=== PATIENT | male | born 1955 | race Caucasian/White ===

== ENCOUNTER 2017-11-09 18:22 | Emergency (ER) | payer OTHER, SELFPAY ==
[~2017-11-09] VITALS: Ht 185.4 cm; Wt 98.0 kg
[~2017-11-09 18:22] MED LIST: AMOCLA500 PO; BUME1 PO; BUSPAR; CARI350 PO; CEPH500 PO; CLIN150 PO; CLIN300 PO; FURO20 PO; FURO40 PO; HYDCHL12.5 PO; IBUP800 PO; LACT10SY PO; LISI5 PO; METF500 PO; METH10 PO; METH5 PO; OXYC30 PO; OXYC30ER PO; OXYC5 PO; POTA10T PO; POTA8 PO; RXCLIN PO; SOMA350 MG PO; SPIR50 PO; SULTRIDS PO; VANCO-0.9%1.75 GM/50 IV; VANCOMYCIN2 GM/250 M IV; [UNRECOGNIZED DRUG - REMARK]
[2017-11-09 20:00] LABS: BASOPHILS ABSOLUTE AUTO 0.01 K/mm3 (0.00-0.23); BASOPHILS PERCENT AUTO 0 % (0-2); EOSINOPHILS ABSOLUTE AUTO 0.13 K/mm3 (0.00-0.68); EOSINOPHILS PERCENT AUTO 3 % (0-6); Hematocrit 40.9 % (37.0-53.0); Hemoglobin 13.5 g/dL (13.5-17.5); IMMATURE GRAN ABSOLUTE AUTO 0.01 K/mm3 (0.00-0.10); IMMATURE GRAN PERCENT AUTO 0 % (0-1); LYMPHOCYTES ABSOLUTE AUTO 0.75 K/mm3 (0.84-5.20); LYMPHOCYTES PERCENT AUTO 18 % (21-46); MONOCYTES ABSOLUTE AUTO 0.58 K/mm3 (0.16-1.47); MONOCYTES PERCENT AUTO 14 % (4-13); Mean Corpuscular HGB 29.2 pg (26.0-34.0); Mean Corpuscular Volume 88 fL (80-100); Mean Platelet Volume 11.2 fL (9.1-12.4); NEUTROPHILS ABSOLUTE AUTO 2.79 K/mm3 (1.96-9.15); NEUTROPHILS PERCENT AUTO 65 % (41-73); Platelet Count 73 K/mm3 (150-400); RDW Standard Deviation 45.4 fL (35.1-46.3); Red Blood Cell Count 4.63 M/mm3 (4.30-5.90); White Blood Cell Count 4.27 K/mm3 (4.00-11.30)
[2017-11-09] MEDS ORDERED: Cleocin HCl300 MG PO (20:12)
[2017-11-09 20:17] LABS: Alanine Aminotransfer (ALT/SGP 36 U/L (12-78); Albumin, Blood 3.4 g/dL (3.4-5.0); Albumin/Globulin Ratio 0.6 (0.8-1.8); Alk Phos 145 U/L (50-136); Anion Gap 4 mmol/L (6-16); Aspartate Aminotrans (AST/SGOT 33 U/L (12-37); Bilirubin, Total 0.8 mg/dL (0.1-1.0); Blood Urea Nitrogen 15 mg/dL (8-24); Bun/Creatinine Ratio 19.4 (12.0-20.0); CO2, Blood 32 mmol/L (21-32); Calcium, Blood 9.1 mg/dL (8.5-10.1); Chloride, Blood 99 mmol/L (98-108); Creatinine, Blood 0.77 mg/dL (0.60-1.20); Globulin, Blood 5.7 g/dL (2.2-4.0); Glomerular Filtration Rate >60 (60-); Glucose, Blood 103 mg/dL (70-99); Potassium, Blood 4.3 mmol/L (3.5-5.5); Sodium, Blood 135 mmol/L (136-145); Total Protein, Blood 9.1 g/dL (6.4-8.2)
[2018-02-13] MEDS ORDERED: Prinivil10 MG (08:41)
[2018-02-13] MEDS ORDERED: ESZO2 (08:41)
[2018-10-25] MEDS ORDERED: Keflex500 MG PO (03:12)
== END 2017-11-09 20:53 | disposition home or self-care (01) ==
LOC: ER 18:22
PROVIDERS: Physician Assistant
DX: L03.031 Cellulitis of right toe (principal); E11.9 Type 2 diabetes mellitus without complications; K72.90 Hepatic failure, unspecified without coma; Z88.5 Allergy status to narcotic agent; Z79.899 Other long term (current) drug therapy; Z79.84 Long term (current) use of oral hypoglycemic drugs; Z86.19 Personal history of other infectious and parasitic diseases; Z86.14 Personal history of Methicillin resistant Staphylococcus aureus infection; Z90.49 Acquired absence of other specified parts of digestive tract; Z87.891 Personal history of nicotine dependence
CPT/HCPCS: 36415; 80053; 85025; 96365; 99283

== ENCOUNTER 2017-11-11 08:06 | Day surgery (SDC) | payer OTHER, SELFPAY ==
[~2017-11-11 08:06] MED LIST changes: +Cleocin HCl300 MG PO
[2017-11-11] MEDS ORDERED: METH10 PO (09:22)
[2017-11-11] MEDS ORDERED: OXYC30ER PO (09:23)
[2017-11-11] MEDS ORDERED: POTCHL10ER PO (09:24)
[2018-02-13] MEDS ORDERED: ESZO2 (08:41)
[2018-02-13] MEDS ORDERED: Prinivil10 MG (08:41)
[2018-10-25] MEDS ORDERED: Keflex500 MG PO (03:12)
== END 2017-11-11 16:39 | disposition home or self-care (01) ==
LOC: ATC 08:06
DX: L03.031 Cellulitis of right toe (principal); E11.9 Type 2 diabetes mellitus without complications; Z79.899 Other long term (current) drug therapy; Z79.84 Long term (current) use of oral hypoglycemic drugs; Z88.5 Allergy status to narcotic agent; Z87.891 Personal history of nicotine dependence; Z86.14 Personal history of Methicillin resistant Staphylococcus aureus infection
CPT/HCPCS: 96365

== ENCOUNTER 2017-11-12 10:14 | Emergency (ER) | payer OTHER, SELFPAY ==
[~2017-11-12] VITALS: Ht 185.4 cm; Wt 98.9 kg
[~2017-11-12 10:14] MED LIST changes: +POTCHL10ER PO
[2018-02-13] MEDS ORDERED: Prinivil10 MG (08:41)
[2018-02-13] MEDS ORDERED: ESZO2 (08:41)
[2018-10-25] MEDS ORDERED: Keflex500 MG PO (03:12)
== END 2017-11-12 11:40 | disposition home or self-care (01) ==
LOC: ER 10:14
DX: L03.032 Cellulitis of left toe (principal); E11.9 Type 2 diabetes mellitus without complications; K72.90 Hepatic failure, unspecified without coma; Z88.5 Allergy status to narcotic agent; Z79.899 Other long term (current) drug therapy; Z79.84 Long term (current) use of oral hypoglycemic drugs; Z86.19 Personal history of other infectious and parasitic diseases; Z86.14 Personal history of Methicillin resistant Staphylococcus aureus infection; Z90.49 Acquired absence of other specified parts of digestive tract; Z87.891 Personal history of nicotine dependence
CPT/HCPCS: 96372; 99282; J3490

== ENCOUNTER 2017-11-15 12:55 | Day surgery (SDC) | payer OTHER, SELFPAY ==
[2018-02-13] MEDS ORDERED: Prinivil10 MG (08:41)
[2018-02-13] MEDS ORDERED: ESZO2 (08:41)
[2018-10-25] MEDS ORDERED: Keflex500 MG PO (03:12)
== END 2017-11-15 23:18 | disposition home or self-care (01) ==
LOC: WOUND 12:55
PROC: 0HBNXZZ Excision of Left Foot Skin, External Approach (ICD-10-PCS; principal; 2017-11-15)
DX: Z48.00 Encounter for change or removal of nonsurgical wound dressing (principal); E11.22 Type 2 diabetes mellitus with diabetic chronic kidney disease; E11.621 Type 2 diabetes mellitus with foot ulcer; I87.2 Venous insufficiency (chronic) (peripheral); I73.9 Peripheral vascular disease, unspecified; L97.529 Non-pressure chronic ulcer of other part of left foot with unspecified severity
CPT/HCPCS: G0463

== ENCOUNTER 2017-11-20 00:35 | Day surgery (SDC) | payer OTHER ==
[2018-02-13] MEDS ORDERED: ESZO2 (08:41)
[2018-02-13] MEDS ORDERED: Prinivil10 MG (08:41)
[2018-10-25] MEDS ORDERED: Keflex500 MG PO (03:12)
== END 2017-11-20 22:46 | disposition home or self-care (01) ==
LOC: WOUND 00:35
DX: Z48.00 Encounter for change or removal of nonsurgical wound dressing (principal); I87.2 Venous insufficiency (chronic) (peripheral); I73.9 Peripheral vascular disease, unspecified; E11.621 Type 2 diabetes mellitus with foot ulcer; E11.21 Type 2 diabetes mellitus with diabetic nephropathy; L97.529 Non-pressure chronic ulcer of other part of left foot with unspecified severity; Z79.84 Long term (current) use of oral hypoglycemic drugs
CPT/HCPCS: G0463

== ENCOUNTER 2017-11-27 10:40 | Day surgery (SDC) | payer OTHER ==
[2018-02-13] MEDS ORDERED: ESZO2 (08:41)
[2018-02-13] MEDS ORDERED: Prinivil10 MG (08:41)
[2018-10-25] MEDS ORDERED: Keflex500 MG PO (03:12)
== END 2017-11-27 11:39 | disposition home or self-care (01) ==
LOC: WOUND 10:40
DX: Z48.00 Encounter for change or removal of nonsurgical wound dressing (principal); I73.9 Peripheral vascular disease, unspecified; E11.621 Type 2 diabetes mellitus with foot ulcer; E11.21 Type 2 diabetes mellitus with diabetic nephropathy; Z79.84 Long term (current) use of oral hypoglycemic drugs; L97.529 Non-pressure chronic ulcer of other part of left foot with unspecified severity
CPT/HCPCS: G0463

== ENCOUNTER 2017-12-04 10:40 | Day surgery (SDC) | payer OTHER ==
[2018-02-13] MEDS ORDERED: ESZO2 (08:41)
[2018-02-13] MEDS ORDERED: Prinivil10 MG (08:41)
[2018-10-25] MEDS ORDERED: Keflex500 MG PO (03:12)
== END 2017-12-04 12:55 | disposition home or self-care (01) ==
LOC: WOUND 10:40
DX: Z48.00 Encounter for change or removal of nonsurgical wound dressing (principal); E11.621 Type 2 diabetes mellitus with foot ulcer; E11.21 Type 2 diabetes mellitus with diabetic nephropathy; I87.2 Venous insufficiency (chronic) (peripheral); L97.529 Non-pressure chronic ulcer of other part of left foot with unspecified severity
CPT/HCPCS: G0463

== ENCOUNTER 2017-12-11 09:55 | Day surgery (SDC) | payer OTHER, SELFPAY ==
[2018-02-13] MEDS ORDERED: Prinivil10 MG (08:41)
[2018-02-13] MEDS ORDERED: ESZO2 (08:41)
[2018-10-25] MEDS ORDERED: Keflex500 MG PO (03:12)
== END 2017-12-11 23:25 | disposition home or self-care (01) ==
LOC: WOUND 09:55
PROC: 0HBNXZZ Excision of Left Foot Skin, External Approach (ICD-10-PCS; principal; 2017-12-11)
DX: Z48.00 Encounter for change or removal of nonsurgical wound dressing (principal); E11.621 Type 2 diabetes mellitus with foot ulcer; L97.529 Non-pressure chronic ulcer of other part of left foot with unspecified severity; E11.21 Type 2 diabetes mellitus with diabetic nephropathy; I87.2 Venous insufficiency (chronic) (peripheral); I73.9 Peripheral vascular disease, unspecified
CPT/HCPCS: G0463

== ENCOUNTER 2017-12-17 00:22 | Day surgery (SDC) | payer OTHER ==
[2018-02-13] MEDS ORDERED: Prinivil10 MG (08:41)
[2018-02-13] MEDS ORDERED: ESZO2 (08:41)
[2018-10-25] MEDS ORDERED: Keflex500 MG PO (03:12)
== END 2017-12-17 22:57 | disposition home or self-care (01) ==
LOC: WOUND 00:22
DX: Z48.00 Encounter for change or removal of nonsurgical wound dressing (principal); I87.2 Venous insufficiency (chronic) (peripheral); I73.9 Peripheral vascular disease, unspecified; E11.621 Type 2 diabetes mellitus with foot ulcer; E11.21 Type 2 diabetes mellitus with diabetic nephropathy; Z79.84 Long term (current) use of oral hypoglycemic drugs; L97.529 Non-pressure chronic ulcer of other part of left foot with unspecified severity
CPT/HCPCS: G0463

== ENCOUNTER 2017-12-24 00:21 | Day surgery (SDC) | payer OTHER ==
[2018-02-13] MEDS ORDERED: Prinivil10 MG (08:41)
[2018-02-13] MEDS ORDERED: ESZO2 (08:41)
[2018-10-25] MEDS ORDERED: Keflex500 MG PO (03:12)
== END 2017-12-24 14:33 | disposition home or self-care (01) ==
LOC: WOUND 00:21
DX: Z48.00 Encounter for change or removal of nonsurgical wound dressing (principal); I87.2 Venous insufficiency (chronic) (peripheral); I73.9 Peripheral vascular disease, unspecified; E11.621 Type 2 diabetes mellitus with foot ulcer; E11.21 Type 2 diabetes mellitus with diabetic nephropathy; L97.529 Non-pressure chronic ulcer of other part of left foot with unspecified severity
CPT/HCPCS: G0463

== ENCOUNTER 2018-01-01 00:28 | Day surgery (SDC) | payer OTHER ==
[2018-02-13] MEDS ORDERED: Prinivil10 MG (08:41)
[2018-02-13] MEDS ORDERED: ESZO2 (08:41)
[2018-10-25] MEDS ORDERED: Keflex500 MG PO (03:12)
== END 2018-01-01 22:45 | disposition home or self-care (01) ==
LOC: WOUND 00:28
DX: Z48.00 Encounter for change or removal of nonsurgical wound dressing (principal); I87.2 Venous insufficiency (chronic) (peripheral); I73.9 Peripheral vascular disease, unspecified; E11.621 Type 2 diabetes mellitus with foot ulcer; E11.21 Type 2 diabetes mellitus with diabetic nephropathy; L97.529 Non-pressure chronic ulcer of other part of left foot with unspecified severity; Z86.19 Personal history of other infectious and parasitic diseases
CPT/HCPCS: G0463

== ENCOUNTER 2018-01-06 10:17 | Emergency (ER) | payer OTHER, SELFPAY ==
[~2018-01-06] VITALS: Ht 185.4 cm; Wt 98.0 kg
[2018-01-06] MEDS ORDERED: CEPH500 PO (11:51)
[2018-02-13] MEDS ORDERED: ESZO2 (08:41)
[2018-02-13] MEDS ORDERED: Prinivil10 MG (08:41)
[2018-10-25] MEDS ORDERED: Keflex500 MG PO (03:12)
== END 2018-01-06 11:58 | disposition home or self-care (01) ==
LOC: ER 10:17
DX: L03.116 Cellulitis of left lower limb (principal); L03.115 Cellulitis of right lower limb; Z88.5 Allergy status to narcotic agent; Z88.6 Allergy status to analgesic agent; Z79.899 Other long term (current) drug therapy; Z79.84 Long term (current) use of oral hypoglycemic drugs; Z79.2 Long term (current) use of antibiotics; E11.9 Type 2 diabetes mellitus without complications; Z87.891 Personal history of nicotine dependence
CPT/HCPCS: 99282

== ENCOUNTER 2018-01-08 09:43 | Day surgery (SDC) | payer OTHER ==
[2018-02-13] MEDS ORDERED: ESZO2 (08:41)
[2018-02-13] MEDS ORDERED: Prinivil10 MG (08:41)
[2018-10-25] MEDS ORDERED: Keflex500 MG PO (03:12)
== END 2018-01-08 11:47 | disposition home or self-care (01) ==
LOC: WOUND 09:43
DX: Z48.00 Encounter for change or removal of nonsurgical wound dressing (principal); E11.621 Type 2 diabetes mellitus with foot ulcer; L97.529 Non-pressure chronic ulcer of other part of left foot with unspecified severity; Z79.84 Long term (current) use of oral hypoglycemic drugs; Z86.19 Personal history of other infectious and parasitic diseases; I87.2 Venous insufficiency (chronic) (peripheral); I73.9 Peripheral vascular disease, unspecified; E11.21 Type 2 diabetes mellitus with diabetic nephropathy
CPT/HCPCS: G0463

== ENCOUNTER 2018-01-10 01:15 | Day surgery (SDC) | payer OTHER, SELFPAY ==
[2018-01-10] MEDS ORDERED: GABA300 (11:53)
[2018-02-13] MEDS ORDERED: ESZO2 (08:41)
[2018-02-13] MEDS ORDERED: Prinivil10 MG (08:41)
[2018-10-25] MEDS ORDERED: Keflex500 MG PO (03:12)
== END 2018-01-10 10:55 | disposition home or self-care (01) ==
LOC: ATC 01:15
PROC: 02H633Z Insertion of Infusion Device into Right Atrium, Percutaneous Approach (ICD-10-PCS; principal; 2018-01-10)
DX: L03.031 Cellulitis of right toe (principal); E11.40 Type 2 diabetes mellitus with diabetic neuropathy, unspecified; Z87.891 Personal history of nicotine dependence
CPT/HCPCS: 36569; 96374; C1751; J0696

== ENCOUNTER 2018-01-11 00:18 | Day surgery (SDC) | payer OTHER, SELFPAY ==
[~2018-01-11 00:18] MED LIST changes: +GABA300
[2018-02-13] MEDS ORDERED: ESZO2 (08:41)
[2018-02-13] MEDS ORDERED: Prinivil10 MG (08:41)
[2018-10-25] MEDS ORDERED: Keflex500 MG PO (03:12)
== END 2018-01-11 15:23 | disposition home or self-care (01) ==
LOC: ATC 00:18
DX: L03.031 Cellulitis of right toe (principal); E11.40 Type 2 diabetes mellitus with diabetic neuropathy, unspecified; Z88.5 Allergy status to narcotic agent; Z79.899 Other long term (current) drug therapy; Z79.84 Long term (current) use of oral hypoglycemic drugs; Z86.14 Personal history of Methicillin resistant Staphylococcus aureus infection; Z87.891 Personal history of nicotine dependence
CPT/HCPCS: 96374; J0696

== ENCOUNTER 2018-01-12 00:20 | Day surgery (SDC) | payer OTHER, SELFPAY ==
[2018-02-13] MEDS ORDERED: ESZO2 (08:41)
[2018-02-13] MEDS ORDERED: Prinivil10 MG (08:41)
[2018-10-25] MEDS ORDERED: Keflex500 MG PO (03:12)
== END 2018-01-12 11:20 | disposition home or self-care (01) ==
LOC: ATC 00:20
DX: L03.031 Cellulitis of right toe (principal); E11.40 Type 2 diabetes mellitus with diabetic neuropathy, unspecified; Z86.14 Personal history of Methicillin resistant Staphylococcus aureus infection; Z87.891 Personal history of nicotine dependence
CPT/HCPCS: 96374; J0696

== ENCOUNTER 2018-01-13 07:15 | Day surgery (SDC) | payer OTHER, SELFPAY ==
[2018-01-13 11:30] LABS: International Normalized Ratio 1.18; Prothrombin Time Results 12.3 Sec (9.7-11.5)
[2018-02-13] MEDS ORDERED: ESZO2 (08:41)
[2018-02-13] MEDS ORDERED: Prinivil10 MG (08:41)
[2018-10-25] MEDS ORDERED: Keflex500 MG PO (03:12)
== END 2018-01-13 10:59 | disposition home or self-care (01) ==
LOC: ATC 07:15
PROVIDERS: Family Medicine
DX: L03.031 Cellulitis of right toe (principal); E11.40 Type 2 diabetes mellitus with diabetic neuropathy, unspecified; Z86.14 Personal history of Methicillin resistant Staphylococcus aureus infection; Z87.891 Personal history of nicotine dependence
CPT/HCPCS: 82105; 85610; 86708; 87340; 87389; 96374; J0696

== ENCOUNTER 2018-01-14 00:48 | Day surgery (SDC) | payer OTHER, SELFPAY ==
[2018-02-13] MEDS ORDERED: ESZO2 (08:41)
[2018-02-13] MEDS ORDERED: Prinivil10 MG (08:41)
[2018-10-25] MEDS ORDERED: Keflex500 MG PO (03:12)
== END 2018-01-14 11:12 | disposition home or self-care (01) ==
LOC: ATC 00:48
DX: L03.031 Cellulitis of right toe (principal); E11.40 Type 2 diabetes mellitus with diabetic neuropathy, unspecified; Z86.19 Personal history of other infectious and parasitic diseases; Z86.14 Personal history of Methicillin resistant Staphylococcus aureus infection; Z87.891 Personal history of nicotine dependence
CPT/HCPCS: 82140; 96374; J0696

== ENCOUNTER 2018-01-15 03:37 | Day surgery (SDC) | payer OTHER, SELFPAY ==
[2018-02-13] MEDS ORDERED: Prinivil10 MG (08:41)
[2018-02-13] MEDS ORDERED: ESZO2 (08:41)
[2018-10-25] MEDS ORDERED: Keflex500 MG PO (03:12)
== END 2018-01-15 10:54 | disposition home or self-care (01) ==
LOC: ATC 03:37
DX: L03.031 Cellulitis of right toe (principal); E11.40 Type 2 diabetes mellitus with diabetic neuropathy, unspecified; Z86.19 Personal history of other infectious and parasitic diseases; Z87.891 Personal history of nicotine dependence
CPT/HCPCS: 96374; J0696

== ENCOUNTER 2018-01-15 09:43 | Day surgery (SDC) | payer OTHER ==
[2018-02-13] MEDS ORDERED: Prinivil10 MG (08:41)
[2018-02-13] MEDS ORDERED: ESZO2 (08:41)
[2018-10-25] MEDS ORDERED: Keflex500 MG PO (03:12)
== END 2018-01-15 23:24 | disposition home or self-care (01) ==
LOC: WOUND 09:43
DX: Z48.00 Encounter for change or removal of nonsurgical wound dressing (principal); E11.51 Type 2 diabetes mellitus with diabetic peripheral angiopathy without gangrene; I87.2 Venous insufficiency (chronic) (peripheral); I73.9 Peripheral vascular disease, unspecified; E11.621 Type 2 diabetes mellitus with foot ulcer; E11.21 Type 2 diabetes mellitus with diabetic nephropathy
CPT/HCPCS: G0463

== ENCOUNTER 2018-01-16 00:18 | Day surgery (SDC) | payer OTHER, SELFPAY ==
[2018-02-13] MEDS ORDERED: Prinivil10 MG (08:41)
[2018-02-13] MEDS ORDERED: ESZO2 (08:41)
[2018-10-25] MEDS ORDERED: Keflex500 MG PO (03:12)
== END 2018-01-16 09:55 | disposition home or self-care (01) ==
LOC: ATC 00:18
DX: L03.031 Cellulitis of right toe (principal); E11.40 Type 2 diabetes mellitus with diabetic neuropathy, unspecified; Z86.14 Personal history of Methicillin resistant Staphylococcus aureus infection
CPT/HCPCS: 96374; J0696

== ENCOUNTER 2018-01-17 00:36 | Day surgery (SDC) | payer OTHER, SELFPAY ==
[2018-02-13] MEDS ORDERED: ESZO2 (08:41)
[2018-02-13] MEDS ORDERED: Prinivil10 MG (08:41)
[2018-10-25] MEDS ORDERED: Keflex500 MG PO (03:12)
== END 2018-01-17 10:15 | disposition home or self-care (01) ==
LOC: ATC 00:36
DX: L03.031 Cellulitis of right toe (principal); E11.9 Type 2 diabetes mellitus without complications; Z86.14 Personal history of Methicillin resistant Staphylococcus aureus infection; Z87.891 Personal history of nicotine dependence
CPT/HCPCS: 96365; J0696

== ENCOUNTER 2018-01-22 09:45 | Day surgery (SDC) | payer OTHER ==
[2018-02-13] MEDS ORDERED: Prinivil10 MG (08:41)
[2018-02-13] MEDS ORDERED: ESZO2 (08:41)
[2018-10-25] MEDS ORDERED: Keflex500 MG PO (03:12)
== END 2018-01-22 10:36 | disposition home or self-care (01) ==
LOC: WOUND 09:45
DX: Z48.00 Encounter for change or removal of nonsurgical wound dressing (principal); E11.621 Type 2 diabetes mellitus with foot ulcer; L97.529 Non-pressure chronic ulcer of other part of left foot with unspecified severity; I87.2 Venous insufficiency (chronic) (peripheral); I73.9 Peripheral vascular disease, unspecified; E11.21 Type 2 diabetes mellitus with diabetic nephropathy
CPT/HCPCS: G0463

== ENCOUNTER 2018-01-24 00:51 | Day surgery (SDC) | payer OTHER ==
[2018-02-13] MEDS ORDERED: Prinivil10 MG (08:41)
[2018-02-13] MEDS ORDERED: ESZO2 (08:41)
[2018-10-25] MEDS ORDERED: Keflex500 MG PO (03:12)
== END 2018-01-24 11:50 | disposition home or self-care (01) ==
LOC: ATC 00:51
DX: E11.621 Type 2 diabetes mellitus with foot ulcer (principal); L97.519 Non-pressure chronic ulcer of other part of right foot with unspecified severity; I87.2 Venous insufficiency (chronic) (peripheral); I73.9 Peripheral vascular disease, unspecified; E11.21 Type 2 diabetes mellitus with diabetic nephropathy; Z79.84 Long term (current) use of oral hypoglycemic drugs
CPT/HCPCS: 99211

== ENCOUNTER 2018-01-31 01:04 | Day surgery (SDC) | payer OTHER ==
[2018-02-13] MEDS ORDERED: Prinivil10 MG (08:41)
[2018-02-13] MEDS ORDERED: ESZO2 (08:41)
[2018-10-25] MEDS ORDERED: Keflex500 MG PO (03:12)
== END 2018-01-31 11:30 | disposition home or self-care (01) ==
LOC: ATC 01:04
DX: Z45.2 Encounter for adjustment and management of vascular access device (principal); E11.621 Type 2 diabetes mellitus with foot ulcer; L97.429 Non-pressure chronic ulcer of left heel and midfoot with unspecified severity; I87.2 Venous insufficiency (chronic) (peripheral); I73.9 Peripheral vascular disease, unspecified; E11.21 Type 2 diabetes mellitus with diabetic nephropathy; Z86.19 Personal history of other infectious and parasitic diseases
CPT/HCPCS: 99211

== ENCOUNTER 2018-01-31 10:15 | Day surgery (SDC) | payer OTHER ==
[2018-02-13] MEDS ORDERED: Prinivil10 MG (08:41)
[2018-02-13] MEDS ORDERED: ESZO2 (08:41)
[2018-10-25] MEDS ORDERED: Keflex500 MG PO (03:12)
== END 2018-01-31 11:29 | disposition home or self-care (01) ==
LOC: WOUND 10:15
DX: E11.621 Type 2 diabetes mellitus with foot ulcer (principal); I87.2 Venous insufficiency (chronic) (peripheral); I73.9 Peripheral vascular disease, unspecified; E11.21 Type 2 diabetes mellitus with diabetic nephropathy; L97.529 Non-pressure chronic ulcer of other part of left foot with unspecified severity
CPT/HCPCS: G0463

== ENCOUNTER 2018-02-07 00:55 | Day surgery (SDC) | payer OTHER ==
[2018-02-13] MEDS ORDERED: ESZO2 (08:41)
[2018-02-13] MEDS ORDERED: Prinivil10 MG (08:41)
== END 2018-02-07 14:00 | disposition home or self-care (01) ==
LOC: ATC 00:55
DX: E11.621 Type 2 diabetes mellitus with foot ulcer (principal); L97.529 Non-pressure chronic ulcer of other part of left foot with unspecified severity; I87.2 Venous insufficiency (chronic) (peripheral); I73.9 Peripheral vascular disease, unspecified; E11.21 Type 2 diabetes mellitus with diabetic nephropathy
CPT/HCPCS: 93005; 93010; 99211

== ENCOUNTER 2018-02-14 01:24 | Day surgery (SDC) | payer OTHER ==
[~2018-02-14 01:24] MED LIST changes: +ESZO2; +Prinivil10 MG
== END 2018-02-14 16:55 | disposition home or self-care (01) ==
LOC: ATC 01:24
DX: E11.621 Type 2 diabetes mellitus with foot ulcer (principal); L97.529 Non-pressure chronic ulcer of other part of left foot with unspecified severity; E11.21 Type 2 diabetes mellitus with diabetic nephropathy; I87.2 Venous insufficiency (chronic) (peripheral); I73.9 Peripheral vascular disease, unspecified
CPT/HCPCS: 99211

== ENCOUNTER 2018-02-19 11:16 | Day surgery (SDC) | payer OTHER | END 2018-02-19 23:08 | disposition home or self-care (01) | LOC: WOUND 11:16 | DX: E11.621 Type 2 diabetes mellitus with foot ulcer (principal); L97.529 Non-pressure chronic ulcer of other part of left foot with unspecified severity ==

== ENCOUNTER 2018-02-20 11:33 | Day surgery (SDC) | payer OTHER ==
[~2018-02-20] VITALS: Ht 185.4 cm; Wt 99.5 kg
== END 2018-02-20 12:35 | disposition home or self-care (01) ==
LOC: ORSCSDS 11:33
DX: K74.60 Unspecified cirrhosis of liver (principal); Z53.9 Procedure and treatment not carried out, unspecified reason; E11.9 Type 2 diabetes mellitus without complications
CPT/HCPCS: 82947; J7120

== ENCOUNTER 2018-02-21 00:32 | Day surgery (SDC) | payer OTHER | END 2018-02-21 15:00 | disposition home or self-care (01) | LOC: ATC 00:32 | DX: E11.621 Type 2 diabetes mellitus with foot ulcer (principal); I87.2 Venous insufficiency (chronic) (peripheral); L97.529 Non-pressure chronic ulcer of other part of left foot with unspecified severity; I73.9 Peripheral vascular disease, unspecified; E11.21 Type 2 diabetes mellitus with diabetic nephropathy; K74.60 Unspecified cirrhosis of liver | CPT/HCPCS: 36592; 82140 ==

== ENCOUNTER 2018-03-07 00:30 | Day surgery (SDC) | payer OTHER | END 2018-03-07 11:26 | disposition home or self-care (01) | LOC: ATC 00:30 | DX: E11.621 Type 2 diabetes mellitus with foot ulcer (principal); K74.60 Unspecified cirrhosis of liver; I87.2 Venous insufficiency (chronic) (peripheral); I73.9 Peripheral vascular disease, unspecified; E11.21 Type 2 diabetes mellitus with diabetic nephropathy; Z79.84 Long term (current) use of oral hypoglycemic drugs | CPT/HCPCS: 99211 ==

== ENCOUNTER 2018-03-14 00:26 | Day surgery (SDC) | payer OTHER | END 2018-03-14 11:15 | disposition home or self-care (01) | LOC: ATC 00:26 | DX: E11.621 Type 2 diabetes mellitus with foot ulcer (principal); I87.2 Venous insufficiency (chronic) (peripheral); I73.9 Peripheral vascular disease, unspecified; E11.21 Type 2 diabetes mellitus with diabetic nephropathy; K74.60 Unspecified cirrhosis of liver; L97.529 Non-pressure chronic ulcer of other part of left foot with unspecified severity | CPT/HCPCS: 99211 ==

== ENCOUNTER 2018-03-20 09:59 | Day surgery (SDC) | payer OTHER ==
[~2018-03-20] VITALS: Ht 185.4 cm; Wt 98.3 kg
== END 2018-03-20 11:50 | disposition home or self-care (01) ==
LOC: ORSCSDS 09:59
PROVIDERS: Internal Medicine Gastroenterology
PROC: 0DB68ZX Excision of Stomach, Via Natural or Artificial Opening Endoscopic, Diagnostic (ICD-10-PCS; principal; 2018-03-20 11:15)
DX: K74.60 Unspecified cirrhosis of liver (principal); K29.70 Gastritis, unspecified, without bleeding; K20.9 Esophagitis, unspecified; E11.9 Type 2 diabetes mellitus without complications; I10 Essential (primary) hypertension; Z87.891 Personal history of nicotine dependence; Z79.84 Long term (current) use of oral hypoglycemic drugs; Z79.899 Other long term (current) drug therapy
CPT/HCPCS: 82947; 88305; 88342; J7120

== ENCOUNTER 2018-03-21 00:23 | Day surgery (SDC) | payer OTHER | END 2018-03-21 11:58 | disposition home or self-care (01) | LOC: ATC 00:23 | DX: L03.116 Cellulitis of left lower limb (principal); L03.115 Cellulitis of right lower limb; I87.2 Venous insufficiency (chronic) (peripheral); E11.621 Type 2 diabetes mellitus with foot ulcer; E11.21 Type 2 diabetes mellitus with diabetic nephropathy; Z87.891 Personal history of nicotine dependence; E11.51 Type 2 diabetes mellitus with diabetic peripheral angiopathy without gangrene | CPT/HCPCS: 99211 ==

== ENCOUNTER 2021-02-15 09:53 | Emergency (ER) | payer OTHER, SELFPAY ==
[~2021-02-15] VITALS: Ht 182.9 cm; Wt 90.7 kg
[~2021-02-15 09:53] MED LIST changes: +Keflex500 MG PO
[2021-02-15] MEDS ORDERED: Lisinopril2.5 MG PO (10:03)
== END 2021-02-15 10:50 | disposition home or self-care (01) ==
LOC: ER 09:53
DX: I83.891 Varicose veins of right lower extremity with other complications (principal); E11.42 Type 2 diabetes mellitus with diabetic polyneuropathy; Z88.5 Allergy status to narcotic agent; Z88.6 Allergy status to analgesic agent; Z79.84 Long term (current) use of oral hypoglycemic drugs; Z79.899 Other long term (current) drug therapy
CPT/HCPCS: 99283-25

== ENCOUNTER 2021-03-31 13:25 | Day surgery (SDC) | payer OTHER ==
[~2021-03-31] VITALS: Ht 182.9 cm; Wt 84.0 kg
[~2021-03-31 13:25] MED LIST changes: +Lisinopril2.5 MG PO
[2021-03-31] MEDS ORDERED: Lisinopril10 MG (13:50)
[2021-03-31] MEDS ORDERED: GABA300 (13:50)
[2021-03-31] MEDS ORDERED: [UNRECOGNIZED DRUG - OTHER] (13:51)
--- NOTE | 2021-03-31 13:58 | NUR ---
03/31/21 1358 Zuleyma Avelar ONE ATTEMPT IN RH BY MA VALVE SECOND ATTEMPT BY MA IN RH VALVE PT TOW
--- NOTE | 2021-03-31 15:15 | NUR ---
03/31/21 1515 Ginger Saclido PT AWAKE, ALERT, ORIENTED. PT STATES HE IS READY TO GO HOME. PT AMBULATED WELL TO STEP DOWN WHILE WAITING FOR RIDE. PT SMILING.
== END 2021-03-31 15:15 | disposition home or self-care (01) ==
LOC: ORSCSDS 13:25
PROVIDERS: Student in an Organized Health Care Education/Training Program
PROC: 0DB48ZX Excision of Esophagogastric Junction, Via Natural or Artificial Opening Endoscopic, Diagnostic (ICD-10-PCS; principal; 2021-03-31 14:30)
DX: K74.60 Unspecified cirrhosis of liver (principal); I10 Essential (primary) hypertension; E11.9 Type 2 diabetes mellitus without complications; B19.20 Unspecified viral hepatitis C without hepatic coma; Z79.899 Other long term (current) drug therapy; Z79.84 Long term (current) use of oral hypoglycemic drugs
CPT/HCPCS: 82947; 88305; J2704; J7120

== ENCOUNTER 2021-06-17 04:36 | Emergency (ER) | payer OTHER ==
[~2021-06-17] VITALS: Ht 185.4 cm; Wt 88.5 kg
[~2021-06-17 04:36] MED LIST changes: +Lisinopril10 MG; +[UNRECOGNIZED DRUG - OTHER]
== END 2021-06-17 05:25 | disposition home or self-care (01) ==
LOC: ER 04:36
DX: S00.81XA Abrasion of other part of head, initial encounter (principal); S40.212A Abrasion of left shoulder, initial encounter; E11.9 Type 2 diabetes mellitus without complications; Z88.5 Allergy status to narcotic agent; Z88.8 Allergy status to other drugs, medicaments and biological substances; Z79.84 Long term (current) use of oral hypoglycemic drugs; W05.0XXA Fall from non-moving wheelchair, initial encounter; Y92.009 Unspecified place in unspecified non-institutional (private) residence as the place of occurrence of the external cause
CPT/HCPCS: 99283

== ENCOUNTER 2021-08-29 20:11 | Observation (INO) | payer OTHER ==
[~2021-08-29] VITALS: Ht 177.8 cm; Wt 81.2 kg
[2021-08-29 21:45] LABS: BASOPHILS PERCENT AUTO 0 % (0-2); EOSINOPHILS ABSOLUTE AUTO 0.07 K/mm3 (0.00-0.68); EOSINOPHILS PERCENT AUTO 2 % (0-6); Hematocrit 40.4 % (37.0-53.0); Hemoglobin 13.5 g/dL (13.5-17.5); IMMATURE GRAN ABSOLUTE AUTO 0.02 K/mm3 (0.00-0.10); IMMATURE GRAN PERCENT AUTO 1 % (0-1); LYMPHOCYTES ABSOLUTE AUTO 0.38 K/mm3 (0.84-5.20); LYMPHOCYTES PERCENT AUTO 9 % (21-46); MONOCYTES ABSOLUTE AUTO 0.35 K/mm3 (0.16-1.47); MONOCYTES PERCENT AUTO 8 % (4-13); Mean Corpuscular HGB 28.5 pg (26.0-34.0); Mean Corpuscular HGB Conc 33.4 g/dL (31.5-36.5); Mean Corpuscular Volume 85 fL (80-100); Mean Platelet Volume 10.5 fL (9.1-12.4); NEUTROPHILS ABSOLUTE AUTO 3.51 K/mm3 (1.96-9.15); NEUTROPHILS PERCENT AUTO 81 % (41-73); Platelet Count 94 K/mm3 (150-400); RDW Coefficient Variation 13.8 % (11.7-14.2); RDW Standard Deviation 43.5 fL (35.1-46.3); Red Blood Cell Count 4.74 M/mm3 (4.30-5.90); White Blood Cell Count 4.33 K/mm3 (4.00-11.30)
[2021-08-29 22:01] LABS: Alanine Aminotransfer (ALT/SGP 33 U/L (12-78); Albumin/Globulin Ratio 0.5 (0.8-1.8); Alk Phos 177 U/L (50-136); Anion Gap 4 mmol/L (6-16); Aspartate Aminotrans (AST/SGOT 49 U/L (12-37); Bilirubin, Total 0.7 mg/dL (0.1-1.0); Blood Urea Nitrogen 11 mg/dL (8-24); Bun/Creatinine Ratio 16.4 (12.0-20.0); CO2, Blood 29 mmol/L (21-32); Chloride, Blood 103 mmol/L (98-108); Creatinine, Blood 0.67 mg/dL (0.60-1.20); Ethanol (Alcohol), Blood, Med <3 mg/dL; Globulin, Blood 5.9 g/dL (2.2-4.0); Glomerular Filtration Rate >60 (60-); Glucose, Blood 133 mg/dL (70-99); Potassium, Blood 4.6 mmol/L (3.5-5.5); Sodium, Blood 136 mmol/L (136-145); Total Protein, Blood 8.9 g/dL (6.4-8.2)
[2021-08-30 00:56] LABS: Source, Urine Catheter
[2021-08-30 00:58] LABS: Bilirubin, Urine Neg (Neg); Blood, Urine Neg (Neg); Glucose Qualitative, Urine Neg (Neg); Ketones, Urine 2+ (Neg); Leukocyte Esterase, Urine Neg (Neg); Nitrite, Urine Neg (Neg); Protein, Urine Neg (Neg); Specific Gravity, Urine 1.015 (1.003-1.022); Urobilinogen, Urine NORM (Normal); pH, Urine 6.5 (5.0-8.0)
[2021-08-30 01:06] LABS: Appearance, Urine Clear (Clear); Color, Urine Yellow (P-Yellow)
[2021-08-30 01:12] LABS: U Amphetamine Screen DETECTED; U Barbituate Screen Not Detected; U Benzodiazapine Screen Not Detected; U Buprenorphine Screen Not Detected; U Cannabinoids Screen Not Detected; U Cocaine Screen Not Detected; U Methadone Screen Not Detected; U Methamphetamine Screen DETECTED; U Opiates Screen DETECTED; U Oxycodone Screen Not Detected; U Phencyclidine Screen Not Detected; U Propoxyphene Screen Not Detected
--- NOTE | 2021-08-30 04:25 | NUR ---
SHIFT SUMMARY ED ADMIT AT APPROX. 0105. SOMNOLENT T/O SHIFT, RESPONDS TO VERBAL AND PAINFUL STIMULI, ANSWERS QUESTIONS APPROPRIATELY. ABRASION TO BACK OF HEAD WITH SCANT AMOUNT OF BLEEDING NOTED. PT C/O THROBBING HEAD PAIN, MEDICATED PER EMAR. PLAN IS FOR REPEAT CT THIS AM. VSS, NO ACUTE CHANGES. BED IN LOWEST POSITION, ALARM ON, CALL LIGHT IN REACH. WILL CONTINUE TO MONITOR AND REPORT TO ONCOMING RN.
--- NOTE | 2021-08-30 10:27 | NUR ---
PATIENT LYING IN BED WITH EYES CLOSED AT THIS TIME. PATIENT IS EASILY AWAKENED BY CALL HIS NAME. NO SIGNS OR SYMPTOMS ACUTE DISTRESS NOTED AT THIS TIME, WILL MONITOR.
--- NOTE | 2021-08-30 13:18 | NUR ---
DISCHARGE NOTE DISCHARGE INSTRUCTIONS GIVEN TO PATIENT AT THIS TIME. PATIENT VERBALIZED UNDERSTANDING OF DISCHARGE INSTUCTIONS. NO SIGNS OR SYMPTOMS ACUTE DISTRESS NOTED. AWAITING RIDE AT THIS TIME.
== END 2021-08-30 13:57 | disposition home or self-care (01) ==
LOC: ER 20:11 → MEDS 20:12 → SURS 20:12
PROVIDERS: Emergency Medicine; ADMIT Internal Medicine
DX: S06.5X2A Traumatic subdural hemorrhage with loss of consciousness of 31 minutes to 59 minutes, initial encounter (principal); S00.83XA Contusion of other part of head, initial encounter; R40.2431 Glasgow coma scale score 3-8, in the field [EMT or ambulance]; E11.42 Type 2 diabetes mellitus with diabetic polyneuropathy; F15.10 Other stimulant abuse, uncomplicated; W10.9XXA Fall (on) (from) unspecified stairs and steps, initial encounter; Y92.019 Unspecified place in single-family (private) house as the place of occurrence of the external cause; Z79.84 Long term (current) use of oral hypoglycemic drugs; Z86.19 Personal history of other infectious and parasitic diseases; Z86.14 Personal history of Methicillin resistant Staphylococcus aureus infection; Z87.891 Personal history of nicotine dependence; Z88.6 Allergy status to analgesic agent; Z88.5 Allergy status to narcotic agent
CPT/HCPCS: 36415; 70450; 71045; 72125; 80053; 81003; 82947; 85025; 93005; 93010; 99285-25; A9270; G0378; G0480

== ENCOUNTER → 2022-06-20 | Outpatient (CLI) | payer OTHER | END | disposition home or self-care (01) | LOC: LAB SHORT 18:10 → LAB 18:10 | DX: R82.998 Other abnormal findings in urine (principal) | CPT/HCPCS: 87077; 87086; 87147; 87186 ==

== ENCOUNTER 2022-10-25 00:29 | Day surgery (SDC) | payer OTHER | END 2022-10-25 22:59 | disposition home or self-care (01) | LOC: WOUND 00:29 | DX: E11.621 Type 2 diabetes mellitus with foot ulcer (principal); E11.21 Type 2 diabetes mellitus with diabetic nephropathy; E11.51 Type 2 diabetes mellitus with diabetic peripheral angiopathy without gangrene; I87.2 Venous insufficiency (chronic) (peripheral); L89.899 Pressure ulcer of other site, unspecified stage | CPT/HCPCS: A9270; G0463 ==

== ENCOUNTER 2022-11-01 00:55 | Day surgery (SDC) | payer OTHER | END 2022-11-02 00:04 | disposition home or self-care (01) | LOC: WOUND 00:55 | DX: E11.622 Type 2 diabetes mellitus with other skin ulcer (principal); L97.812 Non-pressure chronic ulcer of other part of right lower leg with fat layer exposed; E11.621 Type 2 diabetes mellitus with foot ulcer; L97.512 Non-pressure chronic ulcer of other part of right foot with fat layer exposed; E11.51 Type 2 diabetes mellitus with diabetic peripheral angiopathy without gangrene; I87.2 Venous insufficiency (chronic) (peripheral); E11.21 Type 2 diabetes mellitus with diabetic nephropathy | CPT/HCPCS: A9270; G0463 ==

== ENCOUNTER 2022-11-15 00:57 | Day surgery (SDC) | payer OTHER | END 2022-11-15 23:16 | disposition home or self-care (01) | LOC: WOUND 00:57 | DX: E11.621 Type 2 diabetes mellitus with foot ulcer (principal); L97.512 Non-pressure chronic ulcer of other part of right foot with fat layer exposed; E11.21 Type 2 diabetes mellitus with diabetic nephropathy; E11.51 Type 2 diabetes mellitus with diabetic peripheral angiopathy without gangrene; I87.2 Venous insufficiency (chronic) (peripheral) | CPT/HCPCS: G0463 ==

== ENCOUNTER → 2023-01-25 | Outpatient (CLI) | payer OTHER ==
[2023-01-30 07:05] LABS: Stool Occult Bld Immuno 1 Negative (NEGATIVE)
== END | disposition home or self-care (01) ==
LOC: LAB 16:15 → LAB SHORT 16:15
PROVIDERS: Family Medicine
DX: R63.4 Abnormal weight loss (principal)
CPT/HCPCS: 82274

== ENCOUNTER 2023-10-12 03:45 | Day surgery (SDC) | payer OTHER | END 2023-10-12 22:52 | disposition home or self-care (01) | LOC: WOUND 03:45 | DX: E11.622 Type 2 diabetes mellitus with other skin ulcer (principal); E11.621 Type 2 diabetes mellitus with foot ulcer; L97.812 Non-pressure chronic ulcer of other part of right lower leg with fat layer exposed; L97.512 Non-pressure chronic ulcer of other part of right foot with fat layer exposed; L03.115 Cellulitis of right lower limb; E11.21 Type 2 diabetes mellitus with diabetic nephropathy; E11.51 Type 2 diabetes mellitus with diabetic peripheral angiopathy without gangrene; I87.2 Venous insufficiency (chronic) (peripheral) | CPT/HCPCS: A9270; G0463 ==

== ENCOUNTER 2023-10-19 03:11 | Day surgery (SDC) | payer OTHER | END 2023-10-19 23:14 | disposition home or self-care (01) | LOC: WOUND 03:11 | DX: E11.622 Type 2 diabetes mellitus with other skin ulcer (principal); L97.812 Non-pressure chronic ulcer of other part of right lower leg with fat layer exposed; L03.115 Cellulitis of right lower limb; E11.51 Type 2 diabetes mellitus with diabetic peripheral angiopathy without gangrene; E11.21 Type 2 diabetes mellitus with diabetic nephropathy; I87.2 Venous insufficiency (chronic) (peripheral) | CPT/HCPCS: A9270; G0463 ==

== ENCOUNTER 2023-11-02 03:14 | Day surgery (SDC) | payer OTHER | END 2023-11-03 00:07 | disposition home or self-care (01) | LOC: WOUND 03:14 | DX: E11.622 Type 2 diabetes mellitus with other skin ulcer (principal); L97.812 Non-pressure chronic ulcer of other part of right lower leg with fat layer exposed; L89.890 Pressure ulcer of other site, unstageable; L03.115 Cellulitis of right lower limb; E11.21 Type 2 diabetes mellitus with diabetic nephropathy; E11.51 Type 2 diabetes mellitus with diabetic peripheral angiopathy without gangrene; I87.2 Venous insufficiency (chronic) (peripheral) | CPT/HCPCS: G0463 ==

== ENCOUNTER 2023-11-15 05:01 | Day surgery (SDC) | payer OTHER | END 2023-11-15 22:56 | disposition home or self-care (01) | LOC: WOUND 05:01 | DX: E11.622 Type 2 diabetes mellitus with other skin ulcer (principal); L97.812 Non-pressure chronic ulcer of other part of right lower leg with fat layer exposed; L89.890 Pressure ulcer of other site, unstageable; E11.21 Type 2 diabetes mellitus with diabetic nephropathy; E11.51 Type 2 diabetes mellitus with diabetic peripheral angiopathy without gangrene; L03.115 Cellulitis of right lower limb; I87.2 Venous insufficiency (chronic) (peripheral) | CPT/HCPCS: A9270; G0463 ==

== ENCOUNTER 2023-11-29 02:14 | Day surgery (SDC) | payer OTHER | END 2023-11-29 23:06 | disposition home or self-care (01) | LOC: WOUND 02:14 | DX: E11.622 Type 2 diabetes mellitus with other skin ulcer (principal); L97.812 Non-pressure chronic ulcer of other part of right lower leg with fat layer exposed; E11.621 Type 2 diabetes mellitus with foot ulcer; L97.519 Non-pressure chronic ulcer of other part of right foot with unspecified severity; E11.21 Type 2 diabetes mellitus with diabetic nephropathy; E11.51 Type 2 diabetes mellitus with diabetic peripheral angiopathy without gangrene; I87.2 Venous insufficiency (chronic) (peripheral) | CPT/HCPCS: G0463 ==

== ENCOUNTER 2023-12-06 04:59 | Day surgery (SDC) | payer OTHER | END 2023-12-06 23:07 | disposition home or self-care (01) | LOC: WOUND 04:59 | DX: E11.622 Type 2 diabetes mellitus with other skin ulcer (principal); L97.812 Non-pressure chronic ulcer of other part of right lower leg with fat layer exposed; L89.890 Pressure ulcer of other site, unstageable; L03.115 Cellulitis of right lower limb; E11.21 Type 2 diabetes mellitus with diabetic nephropathy; E11.51 Type 2 diabetes mellitus with diabetic peripheral angiopathy without gangrene; I87.2 Venous insufficiency (chronic) (peripheral) | CPT/HCPCS: A9270; G0463 ==

== ENCOUNTER 2023-12-13 01:40 | Day surgery (SDC) | payer OTHER | END 2023-12-13 23:26 | disposition home or self-care (01) | LOC: WOUND 01:40 | DX: E11.622 Type 2 diabetes mellitus with other skin ulcer (principal); L97.812 Non-pressure chronic ulcer of other part of right lower leg with fat layer exposed; L89.890 Pressure ulcer of other site, unstageable; S81.801D Unspecified open wound, right lower leg, subsequent encounter; L03.115 Cellulitis of right lower limb; E11.21 Type 2 diabetes mellitus with diabetic nephropathy; E11.51 Type 2 diabetes mellitus with diabetic peripheral angiopathy without gangrene; I87.2 Venous insufficiency (chronic) (peripheral); X58.XXXD Exposure to other specified factors, subsequent encounter | CPT/HCPCS: A6213; A9270 ==

== ENCOUNTER 2023-12-20 01:55 | Day surgery (SDC) | payer OTHER | END 2023-12-20 22:59 | disposition home or self-care (01) | LOC: WOUND 01:55 | DX: E11.622 Type 2 diabetes mellitus with other skin ulcer (principal); L97.812 Non-pressure chronic ulcer of other part of right lower leg with fat layer exposed; L89.890 Pressure ulcer of other site, unstageable; L03.115 Cellulitis of right lower limb; E11.21 Type 2 diabetes mellitus with diabetic nephropathy; E11.51 Type 2 diabetes mellitus with diabetic peripheral angiopathy without gangrene; I87.2 Venous insufficiency (chronic) (peripheral) | CPT/HCPCS: G0463 ==

== ENCOUNTER 2023-12-27 01:35 | Day surgery (SDC) | payer OTHER ==
[2023-12-27] MEDS ORDERED: Lidocaine HCl 4% Cream 5 GM ONE (14:56)
== END 2023-12-27 22:57 | disposition home or self-care (01) ==
LOC: WOUND 01:35
DX: E11.51 Type 2 diabetes mellitus with diabetic peripheral angiopathy without gangrene (principal); L97.812 Non-pressure chronic ulcer of other part of right lower leg with fat layer exposed; I70.238 Atherosclerosis of native arteries of right leg with ulceration of other part of lower leg; L03.115 Cellulitis of right lower limb; I87.2 Venous insufficiency (chronic) (peripheral); Z86.19 Personal history of other infectious and parasitic diseases; E11.622 Type 2 diabetes mellitus with other skin ulcer; M19.071 Primary osteoarthritis, right ankle and foot
CPT/HCPCS: 73630; A9270; G0463

== ENCOUNTER 2024-02-21 02:35 | Day surgery (SDC) | payer OTHER ==
[2024-02-21] MEDS ORDERED: Lidocaine HCl 4% Cream 5 GM ONE (14:57)
== END 2024-02-21 23:14 | disposition home or self-care (01) ==
LOC: WOUND 02:35
DX: E11.51 Type 2 diabetes mellitus with diabetic peripheral angiopathy without gangrene (principal); L97.812 Non-pressure chronic ulcer of other part of right lower leg with fat layer exposed; I70.238 Atherosclerosis of native arteries of right leg with ulceration of other part of lower leg; L03.115 Cellulitis of right lower limb; E11.21 Type 2 diabetes mellitus with diabetic nephropathy; I87.2 Venous insufficiency (chronic) (peripheral); Z86.19 Personal history of other infectious and parasitic diseases
CPT/HCPCS: A6213; A9270; G0463

== ENCOUNTER 2024-03-05 03:19 | Day surgery (SDC) | payer OTHER ==
[2024-03-05] MEDS ORDERED: Lidocaine HCl 4% Cream 5 GM ONE (14:32)
== END 2024-03-05 23:03 | disposition home or self-care (01) ==
LOC: WOUND 03:19
DX: E11.622 Type 2 diabetes mellitus with other skin ulcer (principal); L97.812 Non-pressure chronic ulcer of other part of right lower leg with fat layer exposed; L03.115 Cellulitis of right lower limb; E11.21 Type 2 diabetes mellitus with diabetic nephropathy; E11.51 Type 2 diabetes mellitus with diabetic peripheral angiopathy without gangrene; I87.2 Venous insufficiency (chronic) (peripheral)
CPT/HCPCS: A9270

== ENCOUNTER 2024-03-20 03:46 | Day surgery (SDC) | payer OTHER | END 2024-03-20 23:15 | disposition home or self-care (01) | LOC: WOUND 03:46 | PROC: XHRPXF7 Replacement of Skin with Bioengineered Allogeneic Construct, External Approach, New Technology Group 7 (ICD-10-PCS; principal; 2024-03-20) | DX: E11.51 Type 2 diabetes mellitus with diabetic peripheral angiopathy without gangrene (principal); L97.812 Non-pressure chronic ulcer of other part of right lower leg with fat layer exposed; I70.238 Atherosclerosis of native arteries of right leg with ulceration of other part of lower leg; L03.115 Cellulitis of right lower limb; I87.2 Venous insufficiency (chronic) (peripheral) | CPT/HCPCS: Q4133 ==

== ENCOUNTER 2024-05-08 03:28 | Day surgery (SDC) | payer OTHER | END 2024-05-08 22:56 | disposition home or self-care (01) | LOC: WOUND 03:28 | DX: E11.622 Type 2 diabetes mellitus with other skin ulcer (principal); L97.812 Non-pressure chronic ulcer of other part of right lower leg with fat layer exposed; L03.115 Cellulitis of right lower limb; E11.21 Type 2 diabetes mellitus with diabetic nephropathy; E11.51 Type 2 diabetes mellitus with diabetic peripheral angiopathy without gangrene; I87.2 Venous insufficiency (chronic) (peripheral) | CPT/HCPCS: Q4133 ==

== ENCOUNTER 2024-05-22 02:38 | Day surgery (SDC) | payer OTHER | END 2024-05-22 23:19 | disposition home or self-care (01) | LOC: WOUND 02:38 | DX: E11.622 Type 2 diabetes mellitus with other skin ulcer (principal); L97.812 Non-pressure chronic ulcer of other part of right lower leg with fat layer exposed; L03.115 Cellulitis of right lower limb; E11.21 Type 2 diabetes mellitus with diabetic nephropathy; E11.51 Type 2 diabetes mellitus with diabetic peripheral angiopathy without gangrene; I87.2 Venous insufficiency (chronic) (peripheral) | CPT/HCPCS: Q4133 ==

== ENCOUNTER 2024-06-05 03:11 | Day surgery (SDC) | payer OTHER ==
[2024-06-05] MEDS ORDERED: Lidocaine HCl 4% Cream 5 GM ONE (11:52)
== END 2024-06-05 22:59 | disposition home or self-care (01) ==
LOC: WOUND 03:11
DX: E11.622 Type 2 diabetes mellitus with other skin ulcer (principal); L97.812 Non-pressure chronic ulcer of other part of right lower leg with fat layer exposed; L03.115 Cellulitis of right lower limb; E11.21 Type 2 diabetes mellitus with diabetic nephropathy; E11.51 Type 2 diabetes mellitus with diabetic peripheral angiopathy without gangrene; I87.2 Venous insufficiency (chronic) (peripheral)
CPT/HCPCS: A9270

== ENCOUNTER 2024-07-04 03:26 | Day surgery (SDC) | payer OTHER | END 2024-07-04 23:52 | disposition home or self-care (01) | LOC: WOUND 03:26 | DX: E11.622 Type 2 diabetes mellitus with other skin ulcer (principal); L97.812 Non-pressure chronic ulcer of other part of right lower leg with fat layer exposed; I87.2 Venous insufficiency (chronic) (peripheral); E11.40 Type 2 diabetes mellitus with diabetic neuropathy, unspecified | CPT/HCPCS: 87070; 87075; 87077; 87147; 87186; 87205; A6213; G0463 ==

== ENCOUNTER 2024-07-11 01:45 | Day surgery (SDC) | payer OTHER | END 2024-07-11 23:14 | disposition home or self-care (01) | LOC: WOUND 01:45 | DX: E11.622 Type 2 diabetes mellitus with other skin ulcer (principal); L97.812 Non-pressure chronic ulcer of other part of right lower leg with fat layer exposed; L03.115 Cellulitis of right lower limb; E11.21 Type 2 diabetes mellitus with diabetic nephropathy; E11.51 Type 2 diabetes mellitus with diabetic peripheral angiopathy without gangrene; I87.2 Venous insufficiency (chronic) (peripheral) | CPT/HCPCS: A6213; G0463 ==

== ENCOUNTER 2024-07-18 01:51 | Day surgery (SDC) | payer OTHER | END 2024-07-18 23:35 | disposition home or self-care (01) | LOC: WOUND 01:51 | DX: E11.622 Type 2 diabetes mellitus with other skin ulcer (principal); L97.812 Non-pressure chronic ulcer of other part of right lower leg with fat layer exposed; L03.115 Cellulitis of right lower limb; E11.21 Type 2 diabetes mellitus with diabetic nephropathy; E11.51 Type 2 diabetes mellitus with diabetic peripheral angiopathy without gangrene; I87.2 Venous insufficiency (chronic) (peripheral) | CPT/HCPCS: Q4133 ==

== ENCOUNTER 2024-08-08 01:42 | Day surgery (SDC) | payer OTHER ==
[2024-08-08] MEDS ORDERED: Lidocaine HCl 4% Cream 5 GM ONE (15:25)
== END 2024-08-08 22:57 | disposition home or self-care (01) ==
LOC: WOUND 01:42
DX: E11.622 Type 2 diabetes mellitus with other skin ulcer (principal); L97.812 Non-pressure chronic ulcer of other part of right lower leg with fat layer exposed; I87.2 Venous insufficiency (chronic) (peripheral); E11.21 Type 2 diabetes mellitus with diabetic nephropathy; E11.51 Type 2 diabetes mellitus with diabetic peripheral angiopathy without gangrene; Z86.19 Personal history of other infectious and parasitic diseases
CPT/HCPCS: A6213; A9270

== ENCOUNTER 2024-09-04 02:48 | Day surgery (SDC) | payer OTHER ==
[2024-09-04] MEDS ORDERED: Lidocaine HCl 4% Cream 5 GM ONE (08:59)
== END 2024-09-04 23:32 | disposition home or self-care (01) ==
LOC: WOUND 02:48
DX: E11.622 Type 2 diabetes mellitus with other skin ulcer (principal); L97.812 Non-pressure chronic ulcer of other part of right lower leg with fat layer exposed; I87.2 Venous insufficiency (chronic) (peripheral); E11.21 Type 2 diabetes mellitus with diabetic nephropathy; E11.51 Type 2 diabetes mellitus with diabetic peripheral angiopathy without gangrene; K74.60 Unspecified cirrhosis of liver
CPT/HCPCS: A6213; A9270

== ENCOUNTER 2024-10-17 04:58 | Day surgery (SDC) | payer OTHER | END 2024-10-17 23:00 | disposition home or self-care (01) | LOC: WOUND 04:58 | DX: E11.622 Type 2 diabetes mellitus with other skin ulcer (principal); L97.812 Non-pressure chronic ulcer of other part of right lower leg with fat layer exposed; L03.115 Cellulitis of right lower limb; E11.21 Type 2 diabetes mellitus with diabetic nephropathy; E11.51 Type 2 diabetes mellitus with diabetic peripheral angiopathy without gangrene; I87.2 Venous insufficiency (chronic) (peripheral) | CPT/HCPCS: A6213; G0463 ==

== ENCOUNTER 2024-10-24 04:04 | Day surgery (SDC) | payer OTHER | END 2024-10-24 23:00 | disposition home or self-care (01) | LOC: WOUND 04:04 | DX: E11.622 Type 2 diabetes mellitus with other skin ulcer (principal); L97.812 Non-pressure chronic ulcer of other part of right lower leg with fat layer exposed; L03.115 Cellulitis of right lower limb; E11.21 Type 2 diabetes mellitus with diabetic nephropathy; E11.51 Type 2 diabetes mellitus with diabetic peripheral angiopathy without gangrene; I87.2 Venous insufficiency (chronic) (peripheral) | CPT/HCPCS: A6213; G0463 ==

== ENCOUNTER 2024-10-31 06:28 | Day surgery (SDC) | payer OTHER ==
[2024-10-31] MEDS ORDERED: Lidocaine HCl 4% Cream 5 GM ONE (14:25)
== END 2024-10-31 23:00 | disposition home or self-care (01) ==
LOC: WOUND 06:28
DX: L97.812 Non-pressure chronic ulcer of other part of right lower leg with fat layer exposed (principal); E11.622 Type 2 diabetes mellitus with other skin ulcer; L03.115 Cellulitis of right lower limb; E11.51 Type 2 diabetes mellitus with diabetic peripheral angiopathy without gangrene; E11.21 Type 2 diabetes mellitus with diabetic nephropathy; I87.2 Venous insufficiency (chronic) (peripheral)
CPT/HCPCS: A6213; A9270; G0463

== ENCOUNTER 2024-11-14 04:54 | Day surgery (SDC) | payer OTHER ==
[2024-11-14] MEDS ORDERED: Lidocaine HCl 4% Cream 5 GM ONE (15:50)
== END 2024-11-14 23:00 | disposition home or self-care (01) ==
LOC: WOUND 04:54
DX: E11.622 Type 2 diabetes mellitus with other skin ulcer (principal); L97.812 Non-pressure chronic ulcer of other part of right lower leg with fat layer exposed; I87.2 Venous insufficiency (chronic) (peripheral); E11.21 Type 2 diabetes mellitus with diabetic nephropathy; E11.51 Type 2 diabetes mellitus with diabetic peripheral angiopathy without gangrene
CPT/HCPCS: 87070; 87075; 87077; 87186; 87205; A9270

== ENCOUNTER 2024-11-21 06:50 | Day surgery (SDC) | payer OTHER ==
[2024-11-21] MEDS ORDERED: Lidocaine HCl 4% Cream 5 GM ONE (10:10)
== END 2024-11-21 23:00 | disposition home or self-care (01) ==
LOC: WOUND 06:50
DX: E11.622 Type 2 diabetes mellitus with other skin ulcer (principal); L97.812 Non-pressure chronic ulcer of other part of right lower leg with fat layer exposed; L97.822 Non-pressure chronic ulcer of other part of left lower leg with fat layer exposed; L03.115 Cellulitis of right lower limb; E11.21 Type 2 diabetes mellitus with diabetic nephropathy; E11.51 Type 2 diabetes mellitus with diabetic peripheral angiopathy without gangrene; I87.2 Venous insufficiency (chronic) (peripheral)
CPT/HCPCS: A6213; A9270; G0463

== ENCOUNTER 2024-11-25 09:23 | Day surgery (SDC) | payer OTHER ==
[2024-11-25] MEDS ORDERED: Lidocaine HCl 4% Cream 5 GM ONE (10:39)
== END 2024-11-25 23:00 | disposition home or self-care (01) ==
LOC: WOUND 09:23
DX: E11.622 Type 2 diabetes mellitus with other skin ulcer (principal); L97.812 Non-pressure chronic ulcer of other part of right lower leg with fat layer exposed; L97.822 Non-pressure chronic ulcer of other part of left lower leg with fat layer exposed; L03.115 Cellulitis of right lower limb; E11.21 Type 2 diabetes mellitus with diabetic nephropathy; E11.51 Type 2 diabetes mellitus with diabetic peripheral angiopathy without gangrene; I87.2 Venous insufficiency (chronic) (peripheral)
CPT/HCPCS: A6213; A9270; G0463

== ENCOUNTER 2024-12-10 03:23 | Day surgery (SDC) | payer OTHER | END 2024-12-10 23:00 | disposition home or self-care (01) | LOC: WOUND 03:23 | DX: E11.622 Type 2 diabetes mellitus with other skin ulcer (principal); L97.812 Non-pressure chronic ulcer of other part of right lower leg with fat layer exposed; L97.822 Non-pressure chronic ulcer of other part of left lower leg with fat layer exposed; L03.115 Cellulitis of right lower limb; E11.21 Type 2 diabetes mellitus with diabetic nephropathy; E11.51 Type 2 diabetes mellitus with diabetic peripheral angiopathy without gangrene; I87.2 Venous insufficiency (chronic) (peripheral) | CPT/HCPCS: G0463 ==

== ENCOUNTER 2024-12-17 06:17 | Day surgery (SDC) | payer OTHER | END 2024-12-17 23:00 | disposition home or self-care (01) | LOC: WOUND 06:17 | DX: E11.622 Type 2 diabetes mellitus with other skin ulcer (principal); L97.812 Non-pressure chronic ulcer of other part of right lower leg with fat layer exposed; L97.822 Non-pressure chronic ulcer of other part of left lower leg with fat layer exposed; I87.2 Venous insufficiency (chronic) (peripheral); E11.51 Type 2 diabetes mellitus with diabetic peripheral angiopathy without gangrene; E11.21 Type 2 diabetes mellitus with diabetic nephropathy; Z86.19 Personal history of other infectious and parasitic diseases ==

== ENCOUNTER 2024-12-24 02:06 | Day surgery (SDC) | payer OTHER ==
[2024-12-24] MEDS ORDERED: Lidocaine HCl 4% Cream 5 GM ONE (13:50)
== END 2024-12-24 23:00 | disposition home or self-care (01) ==
LOC: WOUND 02:06
DX: E11.622 Type 2 diabetes mellitus with other skin ulcer (principal); L97.812 Non-pressure chronic ulcer of other part of right lower leg with fat layer exposed; L97.822 Non-pressure chronic ulcer of other part of left lower leg with fat layer exposed; I87.2 Venous insufficiency (chronic) (peripheral); E11.51 Type 2 diabetes mellitus with diabetic peripheral angiopathy without gangrene; E11.21 Type 2 diabetes mellitus with diabetic nephropathy
CPT/HCPCS: A9270

== ENCOUNTER 2024-12-31 00:17 | Day surgery (SDC) | payer OTHER ==
[2024-12-31] MEDS ORDERED: Lidocaine HCl 4% Cream 5 GM ONE (14:02)
== END 2024-12-31 23:00 | disposition home or self-care (01) ==
LOC: WOUND 00:17
DX: E11.622 Type 2 diabetes mellitus with other skin ulcer (principal); L97.812 Non-pressure chronic ulcer of other part of right lower leg with fat layer exposed; L97.822 Non-pressure chronic ulcer of other part of left lower leg with fat layer exposed; I87.2 Venous insufficiency (chronic) (peripheral); L03.115 Cellulitis of right lower limb; E11.21 Type 2 diabetes mellitus with diabetic nephropathy; E11.51 Type 2 diabetes mellitus with diabetic peripheral angiopathy without gangrene; Z79.890 Hormone replacement therapy; Z86.19 Personal history of other infectious and parasitic diseases
CPT/HCPCS: A9270

== ENCOUNTER → 2025-01-07 | Day surgery (SDC) | payer OTHER ==
[~2025-01-07] MED LIST changes: +Lidocaine HCl 4% Cream 5 GM ONE
== END ==
LOC: WOUND 01:17
DX: E11.622 Type 2 diabetes mellitus with other skin ulcer (principal); L97.812 Non-pressure chronic ulcer of other part of right lower leg with fat layer exposed; L97.822 Non-pressure chronic ulcer of other part of left lower leg with fat layer exposed; L03.115 Cellulitis of right lower limb; E11.21 Type 2 diabetes mellitus with diabetic nephropathy; E11.51 Type 2 diabetes mellitus with diabetic peripheral angiopathy without gangrene; I87.2 Venous insufficiency (chronic) (peripheral)
CPT/HCPCS: A9270

== ENCOUNTER 2025-01-14 00:57 | Day surgery (SDC) | payer OTHER ==
[~2025-01-14 00:57] MED LIST changes: -Lidocaine HCl 4% Cream 5 GM ONE
[2025-01-14] MEDS ORDERED: Lidocaine HCl 4% Cream 5 GM ONE (13:59)
== END 2025-01-14 23:00 | disposition home or self-care (01) ==
LOC: WOUND 00:57
DX: E11.622 Type 2 diabetes mellitus with other skin ulcer (principal); L97.812 Non-pressure chronic ulcer of other part of right lower leg with fat layer exposed; L97.822 Non-pressure chronic ulcer of other part of left lower leg with fat layer exposed; L03.115 Cellulitis of right lower limb; E11.21 Type 2 diabetes mellitus with diabetic nephropathy; E11.51 Type 2 diabetes mellitus with diabetic peripheral angiopathy without gangrene; I87.2 Venous insufficiency (chronic) (peripheral)
CPT/HCPCS: A9270

== ENCOUNTER 2025-01-22 09:16 | Day surgery (SDC) | payer OTHER | END 2025-01-22 23:00 | disposition home or self-care (01) | LOC: WOUND 09:16 | DX: E11.622 Type 2 diabetes mellitus with other skin ulcer (principal); L97.812 Non-pressure chronic ulcer of other part of right lower leg with fat layer exposed; L97.822 Non-pressure chronic ulcer of other part of left lower leg with fat layer exposed; E11.21 Type 2 diabetes mellitus with diabetic nephropathy; E11.51 Type 2 diabetes mellitus with diabetic peripheral angiopathy without gangrene; L03.115 Cellulitis of right lower limb; I87.2 Venous insufficiency (chronic) (peripheral) ==

== ENCOUNTER 2025-01-28 01:48 | Day surgery (SDC) | payer OTHER | END 2025-01-28 23:00 | disposition home or self-care (01) | LOC: WOUND 01:48 | DX: E11.622 Type 2 diabetes mellitus with other skin ulcer (principal); L97.812 Non-pressure chronic ulcer of other part of right lower leg with fat layer exposed; L03.115 Cellulitis of right lower limb; E11.21 Type 2 diabetes mellitus with diabetic nephropathy; E11.51 Type 2 diabetes mellitus with diabetic peripheral angiopathy without gangrene; I87.2 Venous insufficiency (chronic) (peripheral) ==

== ENCOUNTER 2025-02-02 12:10 | Day surgery (SDC) | payer OTHER | END 2025-02-02 23:03 | disposition home or self-care (01) | LOC: WOUND 12:10 | DX: E11.622 Type 2 diabetes mellitus with other skin ulcer (principal); L97.529 Non-pressure chronic ulcer of other part of left foot with unspecified severity; L97.919 Non-pressure chronic ulcer of unspecified part of right lower leg with unspecified severity; L03.115 Cellulitis of right lower limb; E11.21 Type 2 diabetes mellitus with diabetic nephropathy; E11.51 Type 2 diabetes mellitus with diabetic peripheral angiopathy without gangrene; I87.2 Venous insufficiency (chronic) (peripheral) | CPT/HCPCS: 93971 ==

== ENCOUNTER 2025-02-11 01:43 | Day surgery (SDC) | payer OTHER | END 2025-02-11 23:00 | disposition home or self-care (01) | LOC: WOUND 01:43 | DX: E11.622 Type 2 diabetes mellitus with other skin ulcer (principal); L97.812 Non-pressure chronic ulcer of other part of right lower leg with fat layer exposed; L97.822 Non-pressure chronic ulcer of other part of left lower leg with fat layer exposed; E11.21 Type 2 diabetes mellitus with diabetic nephropathy; E11.51 Type 2 diabetes mellitus with diabetic peripheral angiopathy without gangrene; L03.115 Cellulitis of right lower limb; I87.2 Venous insufficiency (chronic) (peripheral) ==

== ENCOUNTER → 2025-02-18 | Day surgery (SDC) | payer OTHER | LOC: WOUND 03:05 | DX: E11.622 Type 2 diabetes mellitus with other skin ulcer (principal); L97.811 Non-pressure chronic ulcer of other part of right lower leg limited to breakdown of skin; L97.821 Non-pressure chronic ulcer of other part of left lower leg limited to breakdown of skin; I87.2 Venous insufficiency (chronic) (peripheral); E11.21 Type 2 diabetes mellitus with diabetic nephropathy; E11.51 Type 2 diabetes mellitus with diabetic peripheral angiopathy without gangrene; Z86.19 Personal history of other infectious and parasitic diseases | CPT/HCPCS: G0463 ==

== ENCOUNTER 2025-07-01 08:09 | Day surgery (SDC) | payer OTHER ==
[2025-07-01] MEDS ORDERED: Lidocaine HCl 4% Cream 5 GM ONE (08:11)
== END 2025-07-01 23:00 | disposition home or self-care (01) ==
LOC: WOUND 08:09
DX: E11.621 Type 2 diabetes mellitus with foot ulcer (principal); L97.512 Non-pressure chronic ulcer of other part of right foot with fat layer exposed; E11.21 Type 2 diabetes mellitus with diabetic nephropathy; E11.51 Type 2 diabetes mellitus with diabetic peripheral angiopathy without gangrene; I87.2 Venous insufficiency (chronic) (peripheral); Z88.5 Allergy status to narcotic agent
CPT/HCPCS: A9270; G0463

== ENCOUNTER 2025-07-08 04:26 | Day surgery (SDC) | payer OTHER | END 2025-07-08 23:00 | disposition home or self-care (01) | LOC: WOUND 04:26 | DX: E11.621 Type 2 diabetes mellitus with foot ulcer (principal); L97.512 Non-pressure chronic ulcer of other part of right foot with fat layer exposed; E11.51 Type 2 diabetes mellitus with diabetic peripheral angiopathy without gangrene; I87.2 Venous insufficiency (chronic) (peripheral); S92.411A Displaced fracture of proximal phalanx of right great toe, initial encounter for closed fracture | CPT/HCPCS: 73630; G0463 ==

== ENCOUNTER 2025-07-15 02:32 | Day surgery (SDC) | payer OTHER | END 2025-07-15 23:00 | disposition home or self-care (01) | LOC: WOUND 02:32 | DX: E11.51 Type 2 diabetes mellitus with diabetic peripheral angiopathy without gangrene (principal); E11.21 Type 2 diabetes mellitus with diabetic nephropathy; I87.2 Venous insufficiency (chronic) (peripheral); Z86.31 Personal history of diabetic foot ulcer | CPT/HCPCS: G0463 ==